=== PATIENT | female | born 1945 | race Caucasian/White ===

== ENCOUNTER 2017-08-08 08:27 | Outpatient (CLI) | payer MEDICARE ==
[~2017-08-08 08:27] MED LIST: ALBU18HF2 IH; ARFO15VI NEB; DULO30CA30 PO; ESTR-99 PO; FENO135C3 PO; LEVO125T69 PO; MORP30TA60 PO; NABU-104 PO; NORCO10T PO; OMEP-84 PO; OXYB10TA16 PO; PAM25C PO; PRAM0.253 PO; PRED20TA PO; ROSU10TA PO
[2017-08-08 09:09] LABS: BASOPHILS % (AUTO) 0.4 % (0-1); EOSINOPHILS # (AUTO) 0.3 X10'3 (0-0.9); EOSINOPHILS % (AUTO) 5.2 % (0-6); HEMATOCRIT 44.2 % (35.0-45.0); HEMOGLOBIN 14.9 g/dl (12.0-16.0); LYMPHOCYTES % (AUTO) 34.5 % (21-51); MEAN CORPUSCULAR HEMOGLOBIN 27.7 PG (27.0-31.0); MEAN CORPUSCULAR HGB CONC 33.7 % (33.0-36.5); MEAN CORPUSCULAR VOLUME 82.1 FL (78-98); MEAN PLATELET VOLUME 8.1 FL (7.4-10.4); MONOCYTES # (AUTO) 0.4 X10'3 (0-0.9); MONOCYTES % (AUTO) 6.2 % (2-12); NEUTROPHILS # (AUTO) 3.1 X10'3 (1.8-7.7); NEUTROPHILS % (AUTO) 53.7 % (42-75); PLATELET COUNT 341 X10'3 (140-440); RED BLOOD COUNT 5.38 X10'6 (4.20-5.60); RED CELL DISTRIBUTION WIDTH 18.7 % (11.5-14.5); WHITE BLOOD COUNT 5.8 X10'3 (4.5-11.0)
[2017-08-08 09:20] LABS: CLARITY,URINE SLIGHTLY CLOUDY (Clear); COLOR,URINE STRAW (Yellow); GLUCOSE, URINE NEGATIVE (Neg); KETONES,URINE NEGATIVE (Neg); LEUKOCYTE ESTERASE ,URINE NEGATIVE (Neg); NITRITES, URINE NEGATIVE (Neg); OCCULT BLOOD,URINE NEGATIVE (Neg); PROTEIN,URINE NEGATIVE (Neg); UROBILINOGEN,URINE 0.2 E.U/dL (0.2-1.0)
[2017-08-08 09:21] LABS: PROTHROMBIN TIME 10.2 SECONDS (9.0-12.0)
[2017-08-08 09:31] LABS: ALANINE AMINOTRANSFERASE 26 U/L (12-78); ALBUMIN 3.9 G/DL (3.4-5.0); ALBUMIN/GLOBULIN RATIO 1.1 (1.1-1.5); ALKALINE PHOSPHATASE 74 IU/L (46-116); ANION GAP 6 (8-16); ASPARTATE AMINO TRANSFERASE 21 U/L (10-37); BILIRUBIN,TOTAL 0.4 MG/DL (0.1-1.0); BLOOD UREA NITROGEN 22 MG/DL (7-18); CALCIUM 9.8 MG/DL (8.5-10.1); CHLORIDE 105 MMOL/L (99-107); GLUCOSE 121 MG/DL (70-104); POTASSIUM 4.2 MMOL/L (3.5-5.1); SODIUM 140 MMOL/L (135-145); TOTAL CARBON DIOXIDE 28.7 MMOL/L (24-32); TOTAL PROTEIN 7.3 G/DL (6.4-8.2); eGFR 49 ML/MIN
[2017-08-08 09:38] LABS: SQUAMOUS EPITHELIAL CELL,UR MODERATE /LPF (FEW); UA COLLECTION TYPE CLN CATCH MIDSTREAM
[2017-08-08 09:39] LABS: BACTERIA,URINE FEW /HPF (Neg); RBC,URINE 0-2 /HPF (0-2); WBC,URINE 0-4 /HPF (0-4)
== END 2017-08-08 23:59 | disposition home or self-care (01) ==
LOC: LAB 08:27
PROVIDERS: ATTEND Specialist
DX: Z01.818 Encounter for other preprocedural examination (principal); Z51.81 Encounter for therapeutic drug level monitoring; N39.0 Urinary tract infection, site not specified; J44.9 Chronic obstructive pulmonary disease, unspecified; J45.909 Unspecified asthma, uncomplicated; F17.200 Nicotine dependence, unspecified, uncomplicated
CPT/HCPCS: 36415; 80053; 81001; 85025; 85610; 87070

== ENCOUNTER 2017-08-19 09:56 | Day surgery (SDC) | payer MEDICARE ==
[2017-08-19] VITALS (8 sets, daily range): BP systolic 102–156; BP diastolic 51–94
[~2017-08-19] VITALS: Ht 165.1 cm; Wt 72.6 kg
[~2017-08-19 09:56] MED LIST changes: -ARFO15VI NEB; +CHOL100046 PO; +ERGO500014 PO; -ESTR-99 PO; -FENO135C3 PO; +FENO160T13 PO; +FLUT1DIS4 INH; +MAGN400C PO; +METF500T7 PO; -MORP30TA60 PO; -NABU-104 PO; -OXYB10TA16 PO; +POTASSIUM PO; -PRED20TA PO; -ROSU10TA PO; +TIOT18CA3 INH; +acetaminophen 325mg tablet PO ONE; +albuterol 2.5 MG/3 ML nebule NEB ONE; +cefazolin/dext.iso 2gm/50ml 50 ML IV ONE; +famotidine 20mg tablet PO ONE; +gabapentin 300mg capsule PO ONE; +oxyCODONE SR 10mg (sust. release) tab PO ONE; +ringers solution, lacted 1,000 ML IV SCH; +vancomycin inj 1,500 MG in normal saline 300ml IV soln IV ONE
[2017-08-19] MEDS ORDERED: desflurane 240ml liquid inh. IH ONE (10:48)
[2017-08-19] MEDS ORDERED: fentaNYL/PF 50MCG/1 ML 2ML syringe ONE (10:56)
[2017-08-19] MEDS ORDERED: midazolam 2 mg/2 ml injection ONE (10:56)
[2017-08-19] MEDS ORDERED: propofol inj 20 ML IV ONE ×2 (11:10→11:35)
[2017-08-19] MEDS ORDERED: LIDOcaine 2% (20mg/ml) 5ml vial ONE (11:10)
[2017-08-19] MEDS ORDERED: ondansetron/PF 4mg/2ml inj ONE (11:35)
[2017-08-19] MEDS ORDERED: dexamethasone sod phosphate 4mg/ml inj. ONE (11:35)
[2017-08-19] MEDS ORDERED: ringers solution, lacted 1,000 ML IV SCH (11:42)
[2017-08-19] MEDS ORDERED: proCHLORperazine 10 MG/2 ml inj IV PRN (11:45)
[2017-08-19] MEDS ORDERED: acetaminophen 1,000mg/100ml IV 100 ML IV PRN (11:45)
[2017-08-19] MEDS ORDERED: ondansetron/PF 4mg/2ml inj IV PRN (11:45)
[2017-08-19] MEDS ORDERED: meperidine/PF 50mg/ml syringe IV PRN ×2 (11:45)
[2017-08-19] MEDS ORDERED: morphine 2 MG/ML inj. syringe IV PRN ×2 (11:45)
[2017-08-19] MEDS: meperidine/PF 50mg/ml syringe IV PRN ×4 (12:33→12:51)
== END 2017-08-19 13:20 | disposition home or self-care (01) ==
LOC: PAS 09:56
PROVIDERS: ATTEND Specialist
DX: M24.661 Ankylosis, right knee (principal); M89.8X6 Other specified disorders of bone, lower leg; M12.261 Villonodular synovitis (pigmented), right knee; E11.9 Type 2 diabetes mellitus without complications; J44.9 Chronic obstructive pulmonary disease, unspecified; E03.9 Hypothyroidism, unspecified; M79.7 Fibromyalgia; M81.0 Age-related osteoporosis without current pathological fracture; F41.9 Anxiety disorder, unspecified; K21.9 Gastro-esophageal reflux disease without esophagitis; E78.5 Hyperlipidemia, unspecified; G89.29 Other chronic pain; Z90.710 Acquired absence of both cervix and uterus; Z87.891 Personal history of nicotine dependence; Z79.84 Long term (current) use of oral hypoglycemic drugs; Z79.891 Long term (current) use of opiate analgesic; Z96.651 Presence of right artificial knee joint; Z90.49 Acquired absence of other specified parts of digestive tract; Z98.890 Other specified postprocedural states
CPT/HCPCS: 29877; 82948; 94640; A6449; J0690; J1100; J2001; J2175; J2250; J2405; J2704; J3010; J3370; J7030; J7120

== ENCOUNTER 2017-11-06 09:54 | Emergency (ER) | payer MEDICARE ==
[~2017-11-06] VITALS: Ht 165.1 cm; Wt 65.9 kg
[~2017-11-06 09:54] MED LIST changes: -acetaminophen 325mg tablet PO ONE; -albuterol 2.5 MG/3 ML nebule NEB ONE; -cefazolin/dext.iso 2gm/50ml 50 ML IV ONE; -famotidine 20mg tablet PO ONE; -gabapentin 300mg capsule PO ONE; -oxyCODONE SR 10mg (sust. release) tab PO ONE; -ringers solution, lacted 1,000 ML IV SCH; -vancomycin inj 1,500 MG in normal saline 300ml IV soln IV ONE
[2017-11-06] MEDS ORDERED: methylPREDNISolone sod succ 125mg/2ml vial IV ONE (10:05)
[2017-11-06] MEDS ORDERED: ipratropium/albuterol 3ml nebule NEB ONE (10:05)
[2017-11-06] MEDS ORDERED: normal saline 1000ML IV soln IV ONE (10:05)
[2017-11-06 10:25] LABS: BASOPHILS % (AUTO) 0.1 % (0-1); EOSINOPHILS # (AUTO) 0.3 X10'3 (0-0.9); EOSINOPHILS % (AUTO) 2.7 % (0-6); HEMATOCRIT 44.2 % (35.0-45.0); HEMOGLOBIN 15.2 g/dl (12.0-16.0); LYMPHOCYTES % (AUTO) 9.7 % (21-51); MEAN CORPUSCULAR HEMOGLOBIN 29.9 PG (27.0-31.0); MEAN CORPUSCULAR HGB CONC 34.3 % (33.0-36.5); MEAN CORPUSCULAR VOLUME 87.2 FL (78-98); MEAN PLATELET VOLUME 8.1 FL (7.4-10.4); MONOCYTES # (AUTO) 0.3 X10'3 (0-0.9); MONOCYTES % (AUTO) 3.3 % (2-12); NEUTROPHILS # (AUTO) 8.7 X10'3 (1.8-7.7); NEUTROPHILS % (AUTO) 84.2 % (42-75); PLATELET COUNT 334 X10'3 (140-440); RED BLOOD COUNT 5.07 X10'6 (4.20-5.60); WHITE BLOOD COUNT 10.3 X10'3 (4.5-11.0)
[2017-11-06 10:48] LABS: ALANINE AMINOTRANSFERASE 28 U/L (12-78); ALBUMIN 3.9 G/DL (3.4-5.0); ALBUMIN/GLOBULIN RATIO 1.1 (1.1-1.5); ALKALINE PHOSPHATASE 102 IU/L (46-116); ANION GAP 9 (8-16); ASPARTATE AMINO TRANSFERASE 21 U/L (10-37); BILIRUBIN,TOTAL 0.6 MG/DL (0.1-1.0); BLOOD UREA NITROGEN 17 MG/DL (7-18); BUN/CREATININE RATIO 18.5 (6.6-38.0); CALCIUM 9.8 MG/DL (8.5-10.1); CHLORIDE 104 MMOL/L (99-107); CREATININE 0.92 MG/DL (0.40-0.90); GLUCOSE 153 MG/DL (70-104); POTASSIUM 3.9 MMOL/L (3.5-5.1); SODIUM 142 MMOL/L (135-145); TOTAL CARBON DIOXIDE 29.1 MMOL/L (24-32); TOTAL PROTEIN 7.6 G/DL (6.4-8.2); eGFR 60 ML/MIN
[2017-11-06] MEDS ORDERED: GUAI120015 PO (10:55)
[2017-11-06] MEDS ORDERED: PRED20TA PO (10:55)
[2017-11-06 13:26] VITALS: BP 127/64
== END 2017-11-06 13:53 | disposition home or self-care (01) ==
LOC: ER 09:54
DX: J44.1 Chronic obstructive pulmonary disease with (acute) exacerbation (principal); M19.90 Unspecified osteoarthritis, unspecified site
CPT/HCPCS: 36415; 71045; 80053; 83605; 83880; 84484; 85025; 87040; 93005; 94640; 94760; 96361; 96374; 99285; J2930; J7030

== ENCOUNTER 2019-02-23 05:13 | Inpatient (IN) | payer MEDICARE ==
[2019-02-17 12:17] LABS: BASOPHILS % (AUTO) 0.8 % (0-1); EOSINOPHILS # (AUTO) 0.2 X10'3 (0-0.9); EOSINOPHILS % (AUTO) 3.4 % (0-6); HEMATOCRIT 44.6 % (35.0-45.0); HEMOGLOBIN 15.1 g/dl (12.0-16.0); LYMPHOCYTES # (AUTO) 1.6 X10'3 (1.1-4.8); LYMPHOCYTES % (AUTO) 33.6 % (21-51); MEAN CORPUSCULAR HEMOGLOBIN 30.6 PG (27.0-31.0); MEAN CORPUSCULAR HGB CONC 33.9 g/dL (33.0-36.5); MEAN CORPUSCULAR VOLUME 90.4 FL (78-98); MEAN PLATELET VOLUME 8.4 FL (7.4-10.4); MONOCYTES # (AUTO) 0.4 X10'3 (0-0.9); NEUTROPHILS # (AUTO) 2.6 X10'3 (1.8-7.7); NEUTROPHILS % (AUTO) 54.2 % (42-75); PLATELET COUNT 265 X10'3 (140-440); RED BLOOD COUNT 4.93 X10'6 (4.20-5.60); RED CELL DISTRIBUTION WIDTH 13.7 % (11.5-14.5); WHITE BLOOD COUNT 4.8 X10'3 (4.5-11.0)
[2019-02-17 12:31] LABS: PARTIAL THROMBOPLASTIN TIME 28 SECONDS (22-32)
[2019-02-17 12:58] LABS: ALANINE AMINOTRANSFERASE 52 U/L (12-78); ALBUMIN 3.6 G/DL (3.4-5.0); ALKALINE PHOSPHATASE 171 IU/L (46-116); ANION GAP 7 (8-16); ASPARTATE AMINO TRANSFERASE 27 U/L (10-37); BILIRUBIN,TOTAL 0.2 MG/DL (0.1-1.0); BLOOD UREA NITROGEN 15 MG/DL (7-18); BUN/CREATININE RATIO 18.1 (6.6-38.0); CALCIUM 9.3 MG/DL (8.5-10.1); CHLORIDE 104 MMOL/L (99-107); CREATININE 0.83 MG/DL (0.40-0.90); GLUCOSE 113 MG/DL (70-104); HEMOGLOBIN A1C 6.2 % (4.5-6.2); POTASSIUM 4.1 MMOL/L (3.5-5.1); SODIUM 139 MMOL/L (135-145); TOTAL CARBON DIOXIDE 28.2 MMOL/L (24-32); TOTAL PROTEIN 7.2 G/DL (6.4-8.2); eGFR 67 ML/MIN
[~2019-02-23] VITALS: Ht 165.1 cm; Wt 75.3 kg
[2019-02-23] VITALS (22 sets, daily range): BP systolic 102–165; BP diastolic 52–103
[~2019-02-23 05:13] MED LIST changes: -CHOL100046 PO; +DOCO1CAP6 PO; -FENO160T13 PO; +FLUT1BLS4 IH; -FLUT1DIS4 INH; +METF500T20 PO; -METF500T7 PO; +NABU750T2 PO; -POTASSIUM PO; -TIOT18CA3 INH
[2019-02-23] MEDS ORDERED: ringers solution, lacted 1,000 ML IV SCH ×2 (05:30→08:37)
[2019-02-23] MEDS ORDERED: albuterol 2.5 MG/3 ML nebule NEB ONE (05:30)
[2019-02-23] MEDS ORDERED: tranexamic acid inj. 1,000 MG in normal saline 100 ML IV ONE (05:30)
[2019-02-23] MEDS ORDERED: cefazolin/dext.iso 2gm/100 ML IV ONE (05:30)
[2019-02-23] MEDS ORDERED: famotidine 20mg tablet PO ONE (05:30)
[2019-02-23] MEDS ORDERED: vancomycin inj 1,500 MG in normal saline 300ml IV soln IV ONE (05:30)
[2019-02-23] MEDS ORDERED: LIDOcaine 1% (10mg/ml) 2ml vial ONE (06:06)
[2019-02-23] MEDS ORDERED: ceFAZolin 1000mg inj ONE (06:39)
[2019-02-23] MEDS ORDERED: tetracaine 1% (10mg/ml) pres. free inj. ONE (07:12)
[2019-02-23] MEDS ORDERED: fentaNYL/PF 50MCG/1 ML 2ML syringe ONE (07:15)
[2019-02-23] MEDS ORDERED: MIDAZolam 1mg/ml 10ml vial ONE (07:15)
[2019-02-23] MEDS ORDERED: propofol inj 20 ML IV ONE (08:25)
[2019-02-23] MEDS ORDERED: morphine 4 MG/ML inj SYRINge IV PRN ×2 (08:40)
[2019-02-23] MEDS ORDERED: meperidine/PF 25mg/ml syringe IV PRN ×3 (08:40)
[2019-02-23] MEDS ORDERED: ondansetron/PF 4mg/2ml inj IV PRN ×2 (08:40→10:20)
[2019-02-23] MEDS ORDERED: proCHLORperazine 10 MG/2 ml inj IV PRN (08:40)
--- NOTE | 2019-02-23 10:00 | NUR ---
ADMITTED TO PACU FROM OR ACCOMPANIED BY ANESTHESIA. INTIAL PHYSICAL ASSESSMENT DONE AND RECORDED. AWAKE AND RESPONSE ON ARRIVE YO PACU, REPORT RECEIVED FROM ANESTHESIA.
[2019-02-23] MEDS ORDERED: diphenhydrAMINE 25mg capsule PO PRN ×2 (10:20)
[2019-02-23] MEDS ORDERED: bisacodyl 10mg suppository rectal RC PRN (10:20)
[2019-02-23] MEDS ORDERED: magnesium hydroxide 30ml (MOM) UD suspension PO PRN (10:20)
[2019-02-23] MEDS ORDERED: acetaminophen 325mg tablet PO PRN (10:20)
[2019-02-23] MEDS ORDERED: HYDROmorphone inj. 0.5 MG/0.5 ML DISP.SYRIN IV PRN (10:20)
[2019-02-23] MEDS ORDERED: HYDROcodone/acetaminophen 10/325mg tab PO PRN (10:20)
[2019-02-23] MEDS: HYDROcodone/acetaminophen 10/325mg tab PO PRN ×3 (11:45→20:43)
--- NOTE | 2019-02-23 11:50 | NUR ---
PACU DISCHARGE CRITERIA MET, REPORT GIVEN TO FLOOR. DENIES PAIN OR DISCOMFORT, TRANSFERRED TO ROOM IN STABLE GOOD CONDITION. C/O OF PAIN ON ARRIVAL TO ROOM, MEDICATED ORDERED.
[2019-02-23] MEDS ORDERED: non-formulary drug (Albuterol Sulfate (Ventolin Hfa) 2 PUFFS) IH SCH (12:00)
[2019-02-23] MEDS ORDERED: tranexamic acid inj. 750 MG in normal saline 100ml IV soln 100 ML IV ONE (13:00)
[2019-02-23] MEDS: ketorolac tromethamine 15mg/ml inj. IV SCH ×2 (13:41→20:43)
[2019-02-23] MEDS ORDERED: dextrose 50%-water 50ml dispensing syringe IV PRN ×2 (14:15)
[2019-02-23] MEDS ORDERED: dextrose ORAL solution 15 GM/59 ML bottle PO PRN ×2 (14:15)
[2019-02-23] MEDS ORDERED: glucagon, human recombinant 1mg kit SUBCUT PRN (14:15)
[2019-02-23] MEDS ORDERED: insulin Lispro (HumaLOG) vial - multi-dose SQ SCH (14:15)
[2019-02-23] MEDS: potassium Cl 20mEq in NS 1,000 ML IV SCH ×2 (17:07→23:37)
[2019-02-23] MEDS: ceFAZolin 1GM/D5W- ADD-VANTAGE 50 ML IV SCH (17:07)
[2019-02-23] MEDS ORDERED: aspirin 325mg tablet PO SCH (17:30)
--- NOTE | 2019-02-23 18:30 | NUR ---
Patient in room [facility]TH[facility] 4021. I have received report from FEMI CALLE and had the opportunity to ask questions and assume patient care.
[2019-02-23] MEDS ORDERED: vancomycin/NS 1 GM ADD-VANTAGE 250 ML IV SCH (20:00)
[2019-02-23] MEDS: NABUMETONE 750MG PO SCH (20:00)
[2019-02-23] MEDS: pramipexole 0.25mg tablet PO SCH (20:43)
[2019-02-23] MEDS: nortriptyline 25mg capsule PO SCH (20:43)
[2019-02-23] MEDS: sennosides 8.6mg tablet PO SCH (20:44)
[2019-02-23] MEDS: insulin glargine (Lantus) pen - multi-dose SQ SCH (21:00)
[2019-02-24] MEDS: ceFAZolin 1GM/D5W- ADD-VANTAGE 50 ML IV SCH (00:55)
[2019-02-24] MEDS: HYDROcodone/acetaminophen 10/325mg tab PO PRN ×6 (00:59→21:17)
[2019-02-24] MEDS: ketorolac tromethamine 15mg/ml inj. IV SCH ×2 (02:09→08:04)
[2019-02-24 02:12] VITALS: BP 121/63
[2019-02-24 06:15] LABS: BASOPHILS % (AUTO) 0.5 % (0-1); EOSINOPHILS # (AUTO) 0.2 X10'3 (0-0.9); EOSINOPHILS % (AUTO) 3.1 % (0-6); HEMOGLOBIN 11.2 g/dl (12.0-16.0); LYMPHOCYTES # (AUTO) 1.2 X10'3 (1.1-4.8); LYMPHOCYTES % (AUTO) 18.1 % (21-51); MEAN CORPUSCULAR HEMOGLOBIN 30.6 PG (27.0-31.0); MEAN CORPUSCULAR HGB CONC 33.8 g/dL (33.0-36.5); MEAN CORPUSCULAR VOLUME 90.5 FL (78-98); MEAN PLATELET VOLUME 7.8 FL (7.4-10.4); MONOCYTES # (AUTO) 0.4 X10'3 (0-0.9); MONOCYTES % (AUTO) 6.1 % (2-12); NEUTROPHILS # (AUTO) 4.9 X10'3 (1.8-7.7); NEUTROPHILS % (AUTO) 72.2 % (42-75); PLATELET COUNT 196 X10'3 (140-440); RED BLOOD COUNT 3.65 X10'6 (4.20-5.60); RED CELL DISTRIBUTION WIDTH 13.6 % (11.5-14.5); WHITE BLOOD COUNT 6.8 X10'3 (4.5-11.0)
[2019-02-24 06:32] LABS: ALANINE AMINOTRANSFERASE 76 U/L (12-78); ALBUMIN 2.5 G/DL (3.4-5.0); ALBUMIN/GLOBULIN RATIO 0.9 (1.1-1.5); ALKALINE PHOSPHATASE 108 IU/L (46-116); ANION GAP 6 (8-16); ASPARTATE AMINO TRANSFERASE 63 U/L (10-37); BILIRUBIN,TOTAL 0.8 MG/DL (0.1-1.0); BLOOD UREA NITROGEN 15 MG/DL (7-18); BUN/CREATININE RATIO 16.9 (6.6-38.0); CHLORIDE 107 MMOL/L (99-107); CREATININE 0.89 MG/DL (0.40-0.90); GLUCOSE 111 MG/DL (70-104); POTASSIUM 4.3 MMOL/L (3.5-5.1); SODIUM 141 MMOL/L (135-145); TOTAL CARBON DIOXIDE 27.9 MMOL/L (24-32); TOTAL PROTEIN 5.2 G/DL (6.4-8.2); eGFR 62 ML/MIN
--- NOTE | 2019-02-24 06:32 | NUR ---
Problems reprioritized. Patient report given, questions answered & plan of care reviewed with FEMI KIM.
[2019-02-24 06:58] VITALS: BP 115/59
[2019-02-24] MEDS: NABUMETONE 750MG PO SCH ×2 (08:00→20:00)
[2019-02-24] MEDS: FLUTICASONE IH SCH (08:00)
[2019-02-24] MEDS: VILANTER IH SCH (08:00)
[2019-02-24] MEDS: UMECLIDIN IH SCH (08:00)
[2019-02-24] MEDS: aspirin 81mg tablet.DR PO SCH ×2 (08:04→17:36)
[2019-02-24] MEDS: levoTHYROXINE 125mcg tablet PO SCH (08:05)
[2019-02-24] MEDS: duloxetine 30mg CAPSULE.DR PO SCH (08:05)
[2019-02-24] MEDS: pantoprazole 40mg Tablet.DR PO SCH (08:05)
[2019-02-24 11:15] VITALS: BP 113/55
[2019-02-24] MEDS: potassium Cl 20mEq in NS 1,000 ML IV SCH ×2 (12:24→21:21)
[2019-02-24 14:00] VITALS: BP 96/63
--- NOTE | 2019-02-24 14:32 | NUR ---
DM/Joint consults: Pt hx DM A1C <7 not appropriate for ed. AOx3 w/ 75% PO carb controlled meals meeting healing needs. LBM 02/22. Will continue to monitor. Addendum: 02/24/19 at [address] Amended: Links added.
[2019-02-24 18:00] VITALS: BP 93/54
[2019-02-24] MEDS: insulin glargine (Lantus) pen - multi-dose SQ SCH (21:00)
[2019-02-24] MEDS: pramipexole 0.25mg tablet PO SCH (21:15)
[2019-02-24] MEDS: nortriptyline 25mg capsule PO SCH (21:16)
[2019-02-24] MEDS: sennosides 8.6mg tablet PO SCH (21:17)
[2019-02-24 22:00] VITALS: BP 111/53
[2019-02-25] MEDS: HYDROcodone/acetaminophen 10/325mg tab PO PRN ×3 (04:17→17:03)
[2019-02-25 06:19] LABS: BASOPHILS % (AUTO) 0.2 % (0-1); EOSINOPHILS # (AUTO) 0.3 X10'3 (0-0.9); EOSINOPHILS % (AUTO) 3.6 % (0-6); HEMATOCRIT 30.6 % (35.0-45.0); HEMOGLOBIN 10.4 g/dl (12.0-16.0); LYMPHOCYTES # (AUTO) 1.2 X10'3 (1.1-4.8); LYMPHOCYTES % (AUTO) 16.1 % (21-51); MEAN CORPUSCULAR HEMOGLOBIN 30.7 PG (27.0-31.0); MEAN CORPUSCULAR VOLUME 90.3 FL (78-98); MONOCYTES # (AUTO) 0.4 X10'3 (0-0.9); MONOCYTES % (AUTO) 5.9 % (2-12); NEUTROPHILS # (AUTO) 5.5 X10'3 (1.8-7.7); NEUTROPHILS % (AUTO) 74.2 % (42-75); PLATELET COUNT 198 X10'3 (140-440); RED BLOOD COUNT 3.38 X10'6 (4.20-5.60); RED CELL DISTRIBUTION WIDTH 14.1 % (11.5-14.5); WHITE BLOOD COUNT 7.5 X10'3 (4.5-11.0)
--- NOTE | 2019-02-25 06:43 | NUR ---
Problems reprioritized. Patient report given, questions answered & plan of care reviewed with FEMI GAINES.
[2019-02-25 06:44] LABS: ALANINE AMINOTRANSFERASE 56 U/L (12-78); ALBUMIN 2.3 G/DL (3.4-5.0); ALBUMIN/GLOBULIN RATIO 0.7 (1.1-1.5); ALKALINE PHOSPHATASE 109 IU/L (46-116); ANION GAP 8 (8-16); ASPARTATE AMINO TRANSFERASE 42 U/L (10-37); BILIRUBIN,TOTAL 0.4 MG/DL (0.1-1.0); BLOOD UREA NITROGEN 14 MG/DL (7-18); BUN/CREATININE RATIO 16.7 (6.6-38.0); CALCIUM 7.9 MG/DL (8.5-10.1); CHLORIDE 106 MMOL/L (99-107); CREATININE 0.84 MG/DL (0.40-0.90); GLUCOSE 144 MG/DL (70-104); POTASSIUM 4.3 MMOL/L (3.5-5.1); SODIUM 139 MMOL/L (135-145); TOTAL PROTEIN 5.5 G/DL (6.4-8.2); eGFR 66 ML/MIN
--- NOTE | 2019-02-25 06:47 | NUR ---
Patient in room [facility]TH[facility] 4021. I have received report from FEMI HELLER and had the opportunity to ask questions and assume patient care.
[2019-02-25 07:04] VITALS: BP 126/63
[2019-02-25] MEDS: pantoprazole 40mg Tablet.DR PO SCH (07:14)
[2019-02-25] MEDS: aspirin 81mg tablet.DR PO SCH ×2 (07:14→17:03)
[2019-02-25] MEDS: duloxetine 30mg CAPSULE.DR PO SCH (07:14)
[2019-02-25] MEDS: levoTHYROXINE 125mcg tablet PO SCH (07:16)
[2019-02-25] MEDS: FLUTICASONE IH SCH (07:19)
[2019-02-25] MEDS: NABUMETONE 750MG PO SCH ×2 (07:19→20:00)
[2019-02-25] MEDS: UMECLIDIN IH SCH (07:19)
[2019-02-25] MEDS: VILANTER IH SCH (07:19)
[2019-02-25 10:56] VITALS: BP 116/61
--- NOTE | 2019-02-25 11:51 | NUR ---
PATIENT TOLERATED DC OF MARIANO CATH WELL. NO COMPLAINTS, NO ISSUES. 1200ML OF URINE DRAINED FROM DRAINAGE BAG
[2019-02-25 18:00] VITALS: BP 134/65
--- NOTE | 2019-02-25 18:20 | NUR ---
Problems reprioritized. Patient report given, questions answered & plan of care reviewed with FEMI GARCIA.
[2019-02-25] MEDS: pramipexole 0.25mg tablet PO SCH (20:33)
[2019-02-25] MEDS: nortriptyline 25mg capsule PO SCH (20:33)
[2019-02-25] MEDS: sennosides 8.6mg tablet PO SCH (20:33)
[2019-02-25] MEDS: insulin glargine (Lantus) pen - multi-dose SQ SCH (21:00)
[2019-02-25] MEDS: albuterol 2.5 MG/3 ML nebule NEB PRN (21:13)
[2019-02-25 22:00] VITALS: BP 128/49
[2019-02-26] MEDS: HYDROcodone/acetaminophen 10/325mg tab PO PRN ×3 (04:07→14:13)
[2019-02-26 06:00] VITALS: BP 114/77
--- NOTE | 2019-02-26 06:28 | NUR ---
Problems reprioritized. Patient report given, questions answered & plan of care reviewed with FEMI Donovan.
[2019-02-26 06:42] LABS: BASOPHILS % (AUTO) 0.2 % (0-1); EOSINOPHILS # (AUTO) 0.2 X10'3 (0-0.9); EOSINOPHILS % (AUTO) 3.1 % (0-6); HEMOGLOBIN 10.5 g/dl (12.0-16.0); LYMPHOCYTES # (AUTO) 0.9 X10'3 (1.1-4.8); LYMPHOCYTES % (AUTO) 12.7 % (21-51); MEAN CORPUSCULAR HEMOGLOBIN 30.9 PG (27.0-31.0); MEAN CORPUSCULAR HGB CONC 33.9 g/dL (33.0-36.5); MEAN CORPUSCULAR VOLUME 91.2 FL (78-98); MONOCYTES # (AUTO) 0.4 X10'3 (0-0.9); MONOCYTES % (AUTO) 6.4 % (2-12); NEUTROPHILS # (AUTO) 5.4 X10'3 (1.8-7.7); NEUTROPHILS % (AUTO) 77.6 % (42-75); PLATELET COUNT 217 X10'3 (140-440); RED CELL DISTRIBUTION WIDTH 13.7 % (11.5-14.5)
[2019-02-26 07:02] LABS: ALANINE AMINOTRANSFERASE 48 U/L (12-78); ALBUMIN 2.3 G/DL (3.4-5.0); ALBUMIN/GLOBULIN RATIO 0.7 (1.1-1.5); ALKALINE PHOSPHATASE 101 IU/L (46-116); ANION GAP 11 (8-16); ASPARTATE AMINO TRANSFERASE 34 U/L (10-37); BILIRUBIN,TOTAL 0.6 MG/DL (0.1-1.0); BLOOD UREA NITROGEN 11 MG/DL (7-18); BUN/CREATININE RATIO 14.1 (6.6-38.0); CALCIUM 8.2 MG/DL (8.5-10.1); CHLORIDE 104 MMOL/L (99-107); CREATININE 0.78 MG/DL (0.40-0.90); GLUCOSE 128 MG/DL (70-104); POTASSIUM 4.1 MMOL/L (3.5-5.1); SODIUM 140 MMOL/L (135-145); TOTAL CARBON DIOXIDE 25.1 MMOL/L (24-32); TOTAL PROTEIN 5.8 G/DL (6.4-8.2); eGFR 72 ML/MIN
[2019-02-26] MEDS: duloxetine 30mg CAPSULE.DR PO SCH (07:41)
[2019-02-26] MEDS: levoTHYROXINE 125mcg tablet PO SCH (07:41)
[2019-02-26] MEDS: aspirin 81mg tablet.DR PO SCH (07:41)
[2019-02-26] MEDS: pantoprazole 40mg Tablet.DR PO SCH (07:41)
[2019-02-26] MEDS: NABUMETONE 750MG PO SCH (07:42)
[2019-02-26] MEDS: albuterol 2.5 MG/3 ML nebule NEB PRN (08:57)
[2019-02-26 10:00] VITALS: BP 128/66
[2019-02-26] MEDS: FLUTICASONE IH SCH (13:18)
[2019-02-26] MEDS: VILANTER IH SCH (13:18)
[2019-02-26] MEDS: UMECLIDIN IH SCH (13:18)
[2019-04-06] MEDS ORDERED: METF500T20 PO (15:30)
== END 2019-02-26 15:20 | DRG 470 ==
LOC: PAS IN 05:13 → EDSTATUS 07:30 → ORTHO 4S 11:45
PROVIDERS: ADMIT Orthopaedic Surgery; ATTEND Orthopaedic Surgery
PROC: 0SRB06Z Replacement of Left Hip Joint with Oxidized Zirconium on Polyethylene Synthetic Substitute, Open Approach (ICD-10-PCS; principal; 2019-02-23 07:18)
DX: M16.12 Unilateral primary osteoarthritis, left hip (principal); D62 Acute posthemorrhagic anemia; E03.9 Hypothyroidism, unspecified; E11.9 Type 2 diabetes mellitus without complications; F32.9 Major depressive disorder, single episode, unspecified; I49.9 Cardiac arrhythmia, unspecified; I10 Essential (primary) hypertension; G89.4 Chronic pain syndrome; I25.10 Atherosclerotic heart disease of native coronary artery without angina pectoris; J44.9 Chronic obstructive pulmonary disease, unspecified; K21.9 Gastro-esophageal reflux disease without esophagitis; M54.9 Dorsalgia, unspecified; Z87.891 Personal history of nicotine dependence; Z79.899 Other long term (current) drug therapy
CPT/HCPCS: 36415; 71046; 80053; 82948; 83036; 84443; 85025; 85610; 85730; 86885; 86900; 86901; 86920; 87081; 94640; 94760; 97110; 97116; 97530; 97535; A4618; A6449; A7000; C1758; C1776; G0378; J0690; J1170; J1815; J1885; J2001; J2250; J2704; J3010; J3370; J3480; J7120

== ENCOUNTER 2019-04-10 05:39 | Day surgery (SDC) | payer MEDICARE ==
[2019-04-06 15:41] LABS: BASOPHILS % (AUTO) 0.7 % (0-1); EOSINOPHILS # (AUTO) 0.4 X10'3 (0-0.9); LYMPHOCYTES # (AUTO) 1.9 X10'3 (1.1-4.8); LYMPHOCYTES % (AUTO) 32.5 % (21-51); MEAN CORPUSCULAR HEMOGLOBIN 28.7 PG (27.0-31.0); MEAN CORPUSCULAR HGB CONC 33.1 g/dL (33.0-36.5); MEAN CORPUSCULAR VOLUME 86.7 FL (78-98); MEAN PLATELET VOLUME 7.6 FL (7.4-10.4); MONOCYTES # (AUTO) 0.4 X10'3 (0-0.9); MONOCYTES % (AUTO) 6.2 % (2-12); NEUTROPHILS # (AUTO) 3.2 X10'3 (1.8-7.7); NEUTROPHILS % (AUTO) 54.6 % (42-75); PRE OP HEMATOCRIT 40.4 % (35.0-45.0); PRE OP HEMOGLOBIN 13.4 g/dL (12.0-16.0); PRE OP PLATELET COUNT 414 X10'3 (140-440); RED BLOOD COUNT 4.67 X10'6 (4.20-5.60); RED CELL DISTRIBUTION WIDTH 14.5 % (11.5-14.5)
[2019-04-06 15:54] LABS: ALBUMIN 3.6 G/DL (3.4-5.0); ALBUMIN/GLOBULIN RATIO 0.9 (1.1-1.5); ALKALINE PHOSPHATASE 173 IU/L (46-116); BLOOD UREA NITROGEN 19 MG/DL (7-18); BUN/CREATININE RATIO 24.4 (6.6-38.0); CALCIUM 9.2 MG/DL (8.5-10.1); CHLORIDE 105 MMOL/L (99-107); CREATININE 0.78 MG/DL (0.40-0.90); PRE OP ALT 32 U/L (30-65); PRE OP ANION GAP 6 (8-16); PRE OP AST 20 U/L (10-37); PRE OP BILIRUB, TOTAL 0.3 MG/DL (0.0-1.0); PRE OP GLUCOSE 133 MG/DL (70-104); PRE OP SODIUM 141 MMOL/L (135-145); TOTAL CARBON DIOXIDE 29.7 MMOL/L (24-32); TOTAL PROTEIN 7.6 G/DL (6.4-8.2); eGFR 72 ML/MIN
[~2019-04-10] VITALS: Ht 165.1 cm; Wt 73.0 kg
[~2019-04-10 05:39] MED LIST changes: -DOCO1CAP6 PO; -ERGO500014 PO; -MAGN400C PO; -NORCO10T PO; +albuterol 2.5 MG/3 ML nebule NEB ONE; +ceFAZolin 1GM/D5W- ADD-VANTAGE 50 ML IV ONE; +famotidine 20mg tablet PO ONE; +ringers solution, lacted 1,000 ML IV SCH
[2019-04-10 05:45] VITALS: BP 130/71
[2019-04-10] MEDS ORDERED: BUPIVAcaine/PF 2.5mg/ml (0.25%) 10ml vial ONE (06:42)
[2019-04-10] MEDS ORDERED: ringers solution, lacted 1,000 ML IV SCH (06:46)
[2019-04-10] MEDS ORDERED: labetalol 20mg/4ml (5mg/ml) syringe IV PRN (06:50)
[2019-04-10] MEDS ORDERED: fentaNYL/PF 50MCG/1 ML 2ML syringe IV PRN ×2 (06:50)
[2019-04-10] MEDS ORDERED: ondansetron/PF 4mg/2ml inj IV PRN (06:50)
[2019-04-10] MEDS ORDERED: morphine 4 MG/ML inj SYRINge IV PRN ×2 (06:50)
[2019-04-10] MEDS ORDERED: hydrALAZINE 20mg/ml inj. IV PRN (06:50)
[2019-04-10] MEDS ORDERED: LIDOcaine 0.5% (5mg/ml) 50ml vial ONE (07:08)
[2019-04-10] MEDS ORDERED: propofol 10mg/ml 20ml vial IV ONE (07:10)
[2019-04-10] MEDS ORDERED: fentaNYL/PF 50MCG/1 ML 2ML syringe ONE (07:11)
[2019-04-10] MEDS ORDERED: MIDAZolam 5mg/5ml vial ONE (07:11)
[2019-04-10] MEDS ORDERED: LIDOcaine 2% (20mg/ml) 5ml vial ONE (07:13)
[2019-04-10 07:38] VITALS: BP 131/74
--- NOTE | 2019-04-10 07:38 | NUR ---
Received from OR via [facility] , accompanied by AnesthesiologisT JOANNE and report given by Anesthesiolgist. PATIENT WITH 20G PIV IN LEFT UE RUNNING LR AT 100. DENIES PAIN TO RIGHT WRIST + CAP REFILL AND MOVEMENT OF ALL FINGERS. DONNED ICE UPON ARRIVAL. FILI WRAP DRESSING IS CDI AT THIS TIME. Addendum: 04/10/19 at 0745 by Robert Quiñonez RN, RN Amended: Links added.
[2019-04-10 07:43] VITALS: BP 131/74
[2019-04-10 07:48] VITALS: BP 124/71
[2019-04-10 07:58] VITALS: BP 119/74
--- NOTE | 2019-04-10 08:08 | NUR ---
ALL DC CRITERIA HAS BEEN MET. IV TAKEN OUT WITHOUT COMPLICATIONS. ALL INSTRUCTIONS COVERED AND ALL QUESTIONS ANSWERED. DRESSINGS CDI. OUT VIA WHEELCHAIR TO PERSONAL VEHICLE WHERE PATIENT WAS SECURED IN AND DRIVEN HOME BY FAMILY. PATIENT DRANK WITH NO NAUSEA AND WAS TAKEN DOWN TO VEHICLE DRIVEN BY [employer]. NO C.O. PAIN. NO DRAINAGE TO DRESSING. VSS. Addendum: 04/10/19 at 0818 by Robert Quiñonez RN, RN Amended: Links added.
== END 2019-04-10 08:08 | disposition home or self-care (01) ==
LOC: PAS 05:39
PROVIDERS: ATTEND Orthopaedic Surgery Hand Surgery
DX: G56.01 Carpal tunnel syndrome, right upper limb (principal); J44.9 Chronic obstructive pulmonary disease, unspecified; E11.9 Type 2 diabetes mellitus without complications; G89.29 Other chronic pain; K21.9 Gastro-esophageal reflux disease without esophagitis; M18.12 Unilateral primary osteoarthritis of first carpometacarpal joint, left hand; Z86.14 Personal history of Methicillin resistant Staphylococcus aureus infection; Z87.891 Personal history of nicotine dependence; Z79.899 Other long term (current) drug therapy; Z79.84 Long term (current) use of oral hypoglycemic drugs
CPT/HCPCS: 36415; 64721; 80053; 85025; 94640; J0690; J2001; J2250; J3010; J3490; 82948; A4215; A6222; J2704; J7120